=== PATIENT | male | born 1975 | race American Indian/Alaskan Native ===

== ENCOUNTER 2016-11-15 13:44 | Emergency (ER) | payer OTHER ==
[2016-11-15 14:04] VITALS: BMI 29.9
[2016-11-15] MEDS ORDERED: ACETAMINOPHEN 500 MG TABLET (FP) PO ONE (14:31)
[2016-11-15] MEDS ORDERED: ACETAMINOPHEN 325 MG TABLET (FP) ONE (14:52)
[2016-11-15] MEDS ORDERED: SODIUM CHLORIDE 1,000 ML IV STA (14:55)
[2016-11-15] MEDS ORDERED: methylPREDNISolone NA SUCC 125 MG/2 ML VIAL IVPB ONE (14:55)
[2016-11-15] MEDS ORDERED: methylPREDNISolone NA SUCC 125 MG/2 ML VIAL ONE ×2 (15:04→15:05)
[2016-11-15 15:47] LABS: BASOPHIL 0.1 % (0-2.0); EOSINOPHIL 0.2 % (0-4.5); MCH 31.1 pg (25.7-33.7); MCHC 34.3 g/dl (32.0-35.9); MEAN CELL VOLUME 90.6 fl (80-96); MEAN PLT VOLUME 9.3 fl (7.5-11.1); NEUTROPHILS 80.6 % (42.8-82.8); PLATELET COUNT 170 K/MM3 (134-434); RDW 13.4 % (11.9-15.9); WHITE BLOOD COUNT 11.1 K/mm3 (4.0-10.0)
--- NOTE | 2016-11-15 16:14 | PDOC ---
History of Present Illness - General Chief Complaint: Allergic Reaction Stated Complaint: ITCHING Time Seen by Provider: 11/15/16 14:11 History Source: Patient Exam Limitations: No Limitations - History of Present Illness Initial Comments: 11/15/16 15:12 41-year-old male presents the ED with complaints of generalized pruritic rash for the past week so took Claritin with no relief and now developed headache, sore throat, chills, fever and cough. Patient denies shortness of breath, vomiting, abdominal pain, dysuria, diarrhea, lower extremity edema, or recent travel. Patient states similar rash last year which was relieved with Claritin but this time did not seem to alleviate his symptoms. Patient denies medical history but does state works in a daily and smokes cigarettes daily. Timing/Duration: 1 week Severity: mild Associated Symptoms: reports: cough, fever/chills, headaches, weakness Past History - Past Medical History Allergies/Adverse Reactions: Allergies Allergy/AdvReac Type Severity Reaction Status Date / Time SPICY FOODS Allergy Uncoded 11/15/16 14:05 Home Medications: Ambulatory Orders NK [No Known Home Medication] 11/15/16 Other medical history: PATIENT DENIES MEDICAL HISTORY - Psycho/Social/Smoking Cessation Hx Suicidal Ideation: No Smoking History: Current every day smoker Number of Cigarettes Smoked Daily: 20 Information on smoking cessation initiated: No Hx Alcohol Use: Yes (OCCASIONALLY) Drug/Substance Use Hx: No Patient Lives Alone: No Lives with/in: spouse/SO Review of Systems - Review of Systems Able to Perform ROS?: Yes Constitutional: Yes: Chills, Fever HEENTM: Yes: Throat Pain Respiratory: Yes: Cough Cardiac (ROS): No: Symptoms Reported ABD/GI: No: Symptoms Reported : No: Symptoms Reported Musculoskeletal: No: Symptoms Reported Integumentary: Yes: Rash Neurological: Yes: Headache (frontal mild) Endocrine: No: Symptoms Reported Hematologic/Lymphatic: No: Symptoms Reported *Physical Exam - Vital Signs Last Vital Signs Temp Pulse Resp BP Pulse Ox 101.4 F H 105 H 20 141/79 95 11/15/16 13:57 11/15/16 13:57 11/15/16 13:57 11/15/16 13:57 11/15/16 13:57 - Physical Exam General Appearance: Yes: Nourished, Appropriately Dressed. No: Apparent Distress HEENT: positive: EOMI, AMINA. negative: Pale Conjunctivae Neck: positive: Supple Respiratory/Chest: positive: Lungs Clear, Normal Breath Sounds. negative: Respiratory Distress, Accessory Muscle Use Cardiovascular: positive: Regular Rhythm, Regular Rate. negative: Murmur Gastrointestinal/Abdominal: positive: Soft. negative: Tenderness Musculoskeletal: negative: CVA Tenderness Extremity: positive: Normal Capillary Refill. negative: Pedal Edema Integumentary: positive: Warm, Hives (Generalized raised erythematous) Neurologic: positive: Normal Mood/Affect, Motor Strength 5/5 (ambulatory) ED Treatment Course - LABORATORY CBC & Chemistry Diagram: 11/15/16 15:20 11/15/16 15:20 - ADDITIONAL ORDERS Additional order review: 11/15/16 15:20 RBC 4.63 MCV 90.6 MCHC 34.3 RDW 13.4 MPV 9.3 Neutrophils % 80.6 Lymphocytes % 11.9 Monocytes % 7.2 Eosinophils % 0.2 Basophils % 0.1 - RADIOLOGY Radiology Studies Ordered: Category Date Time Status CHEST X-RAY PORTABLE* [RAD] Stat Radiology 11/15/16 14:55 Completed Medical Decision Making - Medical Decision Making 11/15/16 16:22 Patient with URI complaints and generalized pruritic rash. Patient ordered for Solu-Medrol, prednisone, influenza, rapid strep secondary to erythematous posterior pharynx. Patient ordered for fluids, Tylenol, and septic workup. 11/15/16 17:20 Laboratory Tests 11/15/16 11/15/16 11/15/16 15:20 15:20 15:20 WBC 11.1 H Hgb 14.4 Hct 41.9 Plt Count 170 Neutrophils % 80.6 Sodium 137 Potassium 3.9 Chloride 105 Carbon Dioxide 23 Anion Gap 9 BUN 13 Creatinine 0.8 Creat Clearance w eGFR > 60 Random Glucose 146 H Lactic Acid 1.286 AST 20 ALT 40 Influenza swab negative. Rapid strep will be resent since no results were validated. Chest x-ray negative for acute findings. We'll revitalize patient. 11/15/16 17:51 Laboratory Tests 11/15/16 11/15/16 11/15/16 15:20 15:20 15:20 WBC 11.1 H Hgb 14.4 Hct 41.9 Plt Count 170 Neutrophils % 80.6 Sodium 137 Potassium 3.9 Chloride 105 Carbon Dioxide 23 Anion Gap 9 BUN 13 Creatinine 0.8 Creat Clearance w eGFR > 60 Random Glucose 146 H Lactic Acid 1.286 rapid strep and influenza swab neg. Patient states feeling better and has no complaints presently. Patient will be discharged home with prednisone for 3 days and Benadryl when necessary. *DC/Admit/Observation/Transfer Diagnosis at time of Disposition: URI, acute Allergic reaction Qualifiers: Encounter type: initial encounter Qualified Code(s): T78.40XA - Allergy, unspecified, initial encounter - Discharge Dispostion Disposition: HOME Condition at time of disposition: Improved - Patient Instructions Printed Discharge Instructions: DI for Cough -- Adult, DI for General Allergic Reactions Additional Instructions: Please take prednisone tomorrow and for the next 3 days as prescribed. Next and please take Benadryl as needed for itching and may take Motrin or Tylenol for fever or discomfort. If symptoms worsen please return to the ED . otherwise follow-up with your PCP.
[2016-11-15 16:36] LABS: ALBUMIN 3.8 g/dl (3.4-5.0); ALK PHOS 74 U/L (45-117); ANION GAP 9 (8-16); BILIRUBIN,TOTAL 0.4 mg/dL (0.2-1.0); CALCIUM 8.7 mg/dL (8.5-10.1); CO2 23 mmol/L (21-32); COCKROFT - GAULT 143.54; CREATININE 0.8 mg/dL (0.7-1.3); GLUCOSE,RANDOM 146 mg/dL (74-106); SGOT/AST 20 U/L (15-37); SGPT/ALT 40 U/L (12-78); TOT PROT 6.9 g/dl (6.4-8.2)
[2016-11-15 17:45] VITALS: BP 131/78; PULSE 87; TEMP 98.6
== END 2016-11-15 18:12 | disposition home or self-care (01) ==
LOC: JER 13:44
PROC: 3E023GC Introduction of Other Therapeutic Substance into Muscle, Percutaneous Approach (ICD-10-PCS; principal; 2016-11-15)
DX: L50.9 Urticaria, unspecified (principal)
CPT/HCPCS: 36415; 71010-TC; 80053; 83605; 85025; 87040; 87070; 87430; 87804; 99284-25

== ENCOUNTER 2016-11-17 01:52 | Emergency (ER) | payer OTHER ==
[2016-11-17 02:45] VITALS: BMI 30.4
[2016-11-17] MEDS ORDERED: diphenhydrAMINE HCL 50 MG CAPSULE PO ONE (04:07)
[2016-11-17] MEDS ORDERED: diphenhydrAMINE HCL 25 MG CAPSULE (FP) PO ONE (04:37)
--- NOTE | 2016-11-17 05:04 | PDOC ---
History of Present Illness <Monico Patel - Last Filed: 11/17/16 05:22> - General History Source: Patient Exam Limitations: No Limitations - History of Present Illness Initial Comments: 11/17/16 05:43 The patient is a 41 year old male with no significant past medical history who presents to the ED for diffuse rash and itchiness. Patient was seen here in the ER yesterday for same complaint where he was treated and discharged with prednisone and benadryl. Patient reports his symptoms resolved, but then returned again today. He also has complaints of a dry cough. The patient denies fever, chills, SOB, chest pain, and palpitations. The patient denies abdominal pain, nausea, vomiting, and diarrhea. <Ashley Aaron - Last Filed: 11/17/16 05:44> - General Chief Complaint: Hives Stated Complaint: ALLERGY PROBLEM Past History - Psycho/Social/Smoking Cessation Hx Suicidal Ideation: No Smoking History: Never smoked Have you smoked in the past 12 months: No Number of Cigarettes Smoked Daily: 20 Information on smoking cessation initiated: No Hx Alcohol Use: No Drug/Substance Use Hx: No <Monico Patel - Last Filed: 11/17/16 05:22> <Ashley Aaron - Last Filed: 11/17/16 05:44> - Past Medical History Allergies/Adverse Reactions: Allergies Allergy/AdvReac Type Severity Reaction Status Date / Time SPICY FOODS Allergy Uncoded 11/17/16 04:54 Home Medications: Ambulatory Orders Diphenhydramine HCl [Benadryl -] 25 mg PO Q8H PRN #12 capsule 11/15/16 Prednisone [Deltasone -] 40 mg PO DAILY #6 tablet 11/15/16 Diphenhydramine [Benadryl -] 50 mg PO TID PRN #30 capsule 11/17/16 Prednisone [Deltasone -] 60 mg PO DAILY #4 tablet 11/17/16 Review of Systems - Review of Systems Able to Perform ROS?: Yes Comments:: 11/17/16 05:43 GENERAL/CONSTITUTIONAL: No fever or chills. No weakness. HEAD, EYES, EARS, NOSE AND THROAT: No change in vision. No ear pain or discharge. No sore throat. CARDIOVASCULAR: No chest pain or shortness of breath. RESPIRATORY: +cough No wheezing, or hemoptysis. GASTROINTESTINAL: No nausea, vomiting, diarrhea or constipation. GENITOURINARY: No dysuria, frequency, or change in urination. MUSCULOSKELETAL: No joint or muscle swelling or pain. No neck or back pain. SKIN: +diffuse rash and itchiness NEUROLOGIC: No headache, vertigo, loss of consciousness, or change in strength/ sensation. ENDOCRINE: No increased thirst. No abnormal weight change. HEMATOLOGIC/LYMPHATIC: No anemia, easy bleeding, or history of blood clots. <Ashley Aaron - Last Filed: 11/17/16 05:44> *Physical Exam - Vital Signs Last Vital Signs Temp Pulse Resp BP Pulse Ox 98.5 F 82 14 121/78 100 11/17/16 02:43 11/17/16 02:43 11/17/16 02:43 11/17/16 02:43 11/17/16 02:43 <Monico Patel - Last Filed: 11/17/16 05:22> - Vital Signs Last Vital Signs Temp Pulse Resp BP Pulse Ox 98.4 F 80 16 120/78 99 11/17/16 05:15 11/17/16 05:15 11/17/16 05:15 11/17/16 05:15 11/17/16 05:15 - Physical Exam Comments: 11/17/16 05:43 GENERAL: Awake, alert, and fully oriented, in no acute distress HEAD: No signs of trauma EYES: PERRLA, EOMI, sclera anicteric, conjunctiva clear ENT: Auricles normal inspection, hearing grossly normal, nares patent, oropharynx clear without exudates. Moist mucosa NECK: Normal ROM, supple, no lymphadenopathy, JVD, or masses LUNGS: Breath sounds equal, clear to auscultation bilaterally. No wheezes, and no crackles. Airway is patent. No stridor. No hot potato voice. No retractions. HEART: Regular rate and rhythm, normal S1 and S2, no murmurs, rubs or gallops ABDOMEN: Soft, nontender, normoactive bowel sounds. No guarding, no rebound. No masses EXTREMITIES: Normal range of motion, no edema. No clubbing or cyanosis. No cords, erythema, or tenderness NEUROLOGICAL: Cranial nerves II through XII grossly intact. Normal speech, normal gait SKIN: Warm, Dry, normal turgor, no lesions noted. Large blanchable urticaria on neck, arms, face, chest, right eyelid and upper back. No distribution specifically suggesting contact dermatitis. <Ashley Aaron - Last Filed: 11/17/16 05:44> ED Treatment Course - Medications Given in the ED: ED Medications Discontinued Medications Generic Name Dose Route Start Last Admin Trade Name Maciej PRN Reason Stop Dose Admin Diphenhydramine HCl 50 mg 11/17/16 04:07 11/17/16 04:30 Benadryl - PO 11/17/16 04:08 50 mg ONCE ONE Administration Diphenhydramine HCl 50 mg 11/17/16 04:55 11/17/16 05:13 Benadryl Injection - IM 11/17/16 04:56 50 mg ONCE ONE Administration <Ashley Aaron - Last Filed: 11/17/16 05:44> Medical Decision Making - Medical Decision Making 11/17/16 05:23 This is a 41yo m with ongoing urticaria without airway involvement. He is given benadryl and prednisone. 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 <Monico Patel - Last Filed: 11/17/16 05:22> *DC/Admit/Observation/Transfer - Discharge Dispostion Admit: No Decision to Admit order Date/Time: 11/17/16 05:00 - Attestations Physician Attestion: 11/17/16 05:01 I, Dr. Monico Patel MD, attest that this document has been prepared under my direction and personally reviewed by me in its entirety. I further attest, that it accurately reflects all work, treatment, procedures and medical decision -making performed by me. <Monico Patel - Last Filed: 11/17/16 05:22> - Attestations Scribe Attestion: 11/17/16 05:35 Documentation prepared by Ashley Aaron, acting as medical massage therapist for Monico Patel MD, MD <Ashley Aaron - Last Filed: 11/17/16 05:44> Diagnosis at time of Disposition: Urticaria - Discharge Dispostion Disposition: HOME Condition at time of disposition: Good - Prescriptions Prescriptions: Diphenhydramine [Benadryl -] 50 mg PO TID PRN #30 capsule PRN Reason: hives Prednisone [Deltasone -] 60 mg PO DAILY #4 tablet - Referrals Referrals: Chance Case MD [Primary Care Provider] - - Patient Instructions Additional Instructions: Please follow up with your PMD within the next 24 hours and if there is any change otherwise in your symptoms, please return immediately to the ED.
[2016-11-17 05:27] VITALS: BP 120/78; PULSE 80; TEMP 98.4
== END 2016-11-17 05:17 | disposition home or self-care (01) ==
LOC: JER 01:52
PROC: 3E023GC Introduction of Other Therapeutic Substance into Muscle, Percutaneous Approach (ICD-10-PCS; principal; 2016-11-17)
DX: L50.9 Urticaria, unspecified (principal)
CPT/HCPCS: 99282-25

== ENCOUNTER 2021-09-21 23:51 | Emergency (ER) | payer OTHER ==
[2021-09-22 00:30] VITALS: TEMP 97.6; BMI 25.2
[2021-09-22] MEDS ORDERED: SODIUM CHLORIDE 1,000 ML IV STA (00:56)
[2021-09-22] MEDS ORDERED: ONDANSETRON 4 MG/2 ML VIAL IVPUSH ONE (00:58)
[2021-09-22] MEDS ORDERED: ONDANSETRON 4 MG/2 ML VIAL ONE (01:11)
[2021-09-22 01:44] LABS: BASO % 0.3 % (0-2.0); EOS % 1.6 % (0-4.5); HEMATOCRIT 41.2 % (35.4-49); HEMOGLOBIN 14.1 GM/dL (11.7-16.9); LYMPH % 30.6 % (8-40); MCH 31.9 pg (25.7-33.7); MCHC 34.3 g/dl (32.0-35.9); MONO % 7.3 % (3.8-10.2); NEUT % 60.2 % (42.8-82.8); PLATELET COUNT 251 10^3/uL (134-434); RBC 4.42 M/mm3 (4.00-5.60); RDW 13.1 % (11.9-15.9); WHITE BLOOD COUNT 8.8 K/mm3 (4.0-10.0)
[2021-09-22 02:06] LABS: INR 1.06 (0.83-1.09); PROTHROMBIN TIME (PATIENT) 12.2 SEC (9.7-13.0)
[2021-09-22 02:09] LABS: ACTIVATED PTT 26.3 SECONDS (25.2-36.5)
[2021-09-22 02:10] LABS: CALCIUM 9.5 mg/dL (8.5-10.1)
[2021-09-22 02:11] LABS: ALBUMIN 4.4 g/dl (3.4-5.0); BLOOD UREA NITROGEN 16.6 mg/dL (7-18); MAGNESIUM 1.9 mg/dL (1.8-2.4)
[2021-09-22 02:14] LABS: CREATININE 0.8 mg/dL (0.55-1.3)
[2021-09-22 02:15] LABS: BILIRUBIN,TOTAL 0.4 mg/dL (0.2-1); TOT PROT 7.3 g/dl (6.4-8.2)
[2021-09-22 03:40] VITALS: BP 97/57; PULSE 81
== END 2021-09-22 05:02 | disposition home or self-care (01) ==
LOC: JER 23:51
PROC: 3E033GC Introduction of Other Therapeutic Substance into Peripheral Vein, Percutaneous Approach (ICD-10-PCS; principal; 2021-09-21)
PROC: 3E0337Z Introduction of Electrolytic and Water Balance Substance into Peripheral Vein, Percutaneous Approach (ICD-10-PCS; 2021-09-21)
DX: F12.90 Cannabis use, unspecified, uncomplicated (principal)
CPT/HCPCS: 36415; 71046-TC-FY; 80053; 83735; 84484; 85025; 85610; 85730; 93005; 93010; 96361; 96374; 99285-25